=== PATIENT | female | born 1950 | race African-American/Black ===

== ENCOUNTER 2024-05-26 14:31 | Outpatient (RCR) | payer MEDICARE ==
[~2024-05-26 14:31] MED LIST: ACETAMINOPHEN-1 EAC3; HYDROCHLOROTHIA25 MG PO; IBUPROFEN600 MG PO; SIMVASTATIN20 MG PO; ZETIA10 MG PO
== END 2024-06-16 ==
LOC: PT 14:31
PROVIDERS: ATTEND Physician Assistant
DX: S82.842D Displaced bimalleolar fracture of left lower leg, subsequent encounter for closed fracture with routine healing (principal); M25.472 Effusion, left ankle; M25.672 Stiffness of left ankle, not elsewhere classified; M62.81 Muscle weakness (generalized); R26.2 Difficulty in walking, not elsewhere classified